=== PATIENT | female | born 1975 | race Hispanic/Latino ===

== ENCOUNTER 2021-04-14 03:48 | Emergency (ER) | payer SELFPAY ==
[~2021-04-14] VITALS: Ht 160 cm; Wt 81.6 kg
[2021-04-14] MEDS ORDERED: ONDANSETRON HCL INJ 2MG/ML 2ML 2 MG/ML VIAL IV STA (04:28)
[2021-04-14] MEDS ORDERED: MECLIZINE HCL 12.5 MG TAB PO ONE (04:30)
[2021-04-14 04:38] LABS: BASOPHILS # (AUTO) 0.1 (0.0-0.1); BASOPHILS % 0.6 % (0.0-1.0); EOSINOPHILS % 0.2 % (0.0-6.0); HEMATOCRIT 37.7 % (34.2-44.1); HEMOGLOBIN 12.6 g/dL (12.0-16.0); LYMPHOCYTES # (AUTO) 1.3 (1.0-3.2); LYMPHOCYTES % 11.9 % (18.0-39.1); MEAN CORPUSCULAR HEMOGLOBIN 29.6 pg (28-32); MEAN CORPUSCULAR HGB CONC 33.4 g/dL (31-35); MEAN CORPUSCULAR VOLUME 88.7 fL (81-99); MONOCYTES # (AUTO) 0.5 (0.2-0.8); MONOCYTES % 4.7 % (4.4-11.3); NEUTROPHILS # (AUTO) 8.9 (2.1-6.9); PLATELET COUNT 184 x10e3/uL (140-360); RED BLOOD COUNT 4.25 x10e6/uL (3.6-5.1)
[2021-04-14 04:51] LABS: ALANINE AMINOTRANSFERASE 21 IU/L (0-55); ALBUMIN 4.1 g/dL (3.5-5.0); ALBUMIN/GLOBULIN RATIO 1.1 (0.8-2.0); ALKALINE PHOSPHATASE 79 IU/L (40-150); ANION GAP 14.7 mmol/L (8-16); BLOOD UREA NITROGEN 14 mg/dL (7-26); BUN/CREATININE RATIO 19 (6-25); CALCIUM 8.7 mg/dL (8.4-10.2); CARBON DIOXIDE 23 mmol/L (22-29); CHLORIDE 104 mmol/L (98-107); CREATINE KINASE 96 IU/L (29-168); CREATININE, SERUM 0.72 mg/dL (0.57-1.11); EST GLOMERULAR FILTRATION RATE > 60 ML/MIN (60-); GLUCOSE 146 mg/dL (74-118); POTASSIUM 3.7 mmol/L (3.5-5.1); SODIUM 138 mmol/L (136-145)
[2021-04-14 05:20] LABS: CLARITY,URINE CLEAR (CLEAR); COLOR,URINE YELLOW (YELLOW); KETONES,URINE NEGATIVE (NEGATIVE); LEUKOCYTE ESTERASE ,URINE 1+ (NEGATIVE); NITRITE,URINE NEGATIVE (NEGATIVE); PROTEIN,URINE DIPSTICK NEGATIVE (NEGATIVE); URINE UROBILINOGEN 0.2 mg/dL (0.2 - 1)
[2021-04-14 05:49] LABS: BACTERIA,URINE FEW /HPF; EPITHELIAL CELLS,URINE MODERATE /LPF; WBC,URINE (MAN) 21-50 /HPF (0-5)
[2021-04-14] MEDS ORDERED: IOPAMIDOL 370 MG/ML 200 ML INFUS..BTL INJ ONE (06:26)
[2021-04-14] MEDS ORDERED: SODIUM CHLORIDE 0.9% 100 ML ONE (06:26)
[2021-04-14 06:48] VITALS: BP 144/75
== END 2021-04-14 06:45 | disposition home or self-care (01) ==
LOC: ER 04:28
DX: R42 Dizziness and giddiness (principal); R11.2 Nausea with vomiting, unspecified; N39.0 Urinary tract infection, site not specified
CPT/HCPCS: 36415; 70496; 80053; 81001; 81025; 82550; 82553; 84484; 85025; 93005; 99284; J2405; J7050; J8597; Q9967

== ENCOUNTER 2022-09-18 10:15 | Emergency (ER) | payer SELFPAY ==
[~2022-09-18] VITALS: Ht 160 cm; Wt 81.6 kg
[2022-09-18 11:05] LABS: BASOPHILS # (AUTO) 0.1 (0.0-0.1); BASOPHILS % 0.7 % (0.0-1.0); EOSINOPHILS # (AUTO) 0.1 (0.0-0.4); EOSINOPHILS % 1.2 % (0.0-6.0); LYMPHOCYTES # (AUTO) 2.1 (1.0-3.2); LYMPHOCYTES % 28.5 % (18.0-39.1); MEAN CORPUSCULAR HEMOGLOBIN 29.3 pg (28-32); MEAN CORPUSCULAR HGB CONC 33.3 g/dL (31-35); MONOCYTES # (AUTO) 0.4 (0.2-0.8); MONOCYTES % 6.1 % (4.4-11.3); NEUTROPHILS # (AUTO) 4.6 (2.1-6.9); NEUTROPHILS % 63.1 % (38.7-80.0); PLATELET COUNT 183 x10e3/uL (140-360); RED BLOOD COUNT 4.43 x10e6/uL (3.6-5.1); RED CELL DISTRIBUTION WIDTH 12.6 % (11.7-14.4)
[2022-09-18 11:21] LABS: CLARITY,URINE SL CLOUDY (CLEAR); COLOR,URINE YELLOW (YELLOW); LEUKOCYTE ESTERASE ,URINE SMALL (NEGATIVE); NITRITE,URINE NEGATIVE (NEGATIVE)
[2022-09-18 11:25] LABS: KETONES,URINE NEGATIVE (NEGATIVE); PROTEIN,URINE DIPSTICK NEGATIVE (NEGATIVE); URINE UROBILINOGEN 0.2 mg/dL (0.2 - 1)
[2022-09-18 11:28] LABS: ALBUMIN 3.9 g/dL (3.5-5.0); ALBUMIN/GLOBULIN RATIO 1.1 (0.8-2.0); ANION GAP 12.9 mmol/L (8-16); CREATININE, SERUM 0.72 mg/dL (0.57-1.11); POTASSIUM 3.9 mmol/L (3.5-5.1)
[2022-09-18 11:35] LABS: WBC,URINE (MAN) >50 /HPF (0-5)
[2022-09-18 11:36] LABS: BACTERIA,URINE MODERATE /HPF
[2022-09-18 11:38] LABS: EPITHELIAL CELLS,URINE MODERATE /LPF
[2022-09-18] MEDS ORDERED: FIORICET 50-301 EACH PO (12:17)
[2022-09-18] MEDS ORDERED: CYCLOBENZAPRINE5 MG PO (12:17)
== END 2022-09-18 12:19 | disposition home or self-care (01) ==
LOC: ER 10:59
DX: R51.9 Headache, unspecified (principal); R42 Dizziness and giddiness; R11.0 Nausea
CPT/HCPCS: 36415; 70450; 80053; 81001; 85025; 99284

== ENCOUNTER 2024-12-18 11:34 | Emergency (ER) | payer SELFPAY ==
[~2024-12-18] VITALS: Ht 160 cm; Wt 87.5 kg
[~2024-12-18 11:34] MED LIST: CYCLOBENZAPRINE5 MG PO; FIORICET 50-301 EACH PO
[2024-12-18 11:40] VITALS: PULSE 74; RESP 18; TEMP 98.2
[2024-12-18] MEDS ORDERED: POTASSIUM CHLORIDE 20 MEQ TAB CR PO ONE (12:55)
[2024-12-18] MEDS ORDERED: MACROBID 100 M100 MG PO (14:06)
[2024-12-18] MEDS: SODIUM CHLORIDE 0.9% 1000ML 1,000 ML IV ONE (14:10)
[2024-12-18] MEDS: Morphine 4mg INJECTION 4 MG/ML INJ IV ONE (14:10)
[2024-12-18] MEDS: ONDANSETRON HCL INJ 2MG/ML 2ML 2 MG/ML VIAL IV STA (14:10)
[2024-12-18] MEDS: POTASSIUM CHLORIDE 10MEQ EA PO SCH (14:11)
[2024-12-18 15:46] VITALS: BP 129/84; PULSE 84; RESP 18; TEMP 98.6; O2SAT 98
== END 2024-12-18 14:24 | disposition home or self-care (01) ==
LOC: FSED 12:41
DX: R10.32 Left lower quadrant pain (principal); N39.0 Urinary tract infection, site not specified; E87.6 Hypokalemia; E86.0 Dehydration; E66.9 Obesity, unspecified; D25.9 Leiomyoma of uterus, unspecified
CPT/HCPCS: 74176; 99284; J2405; J7030; J2270